=== PATIENT | female | born 1930 | race Caucasian/White ===

== ENCOUNTER 2021-09-21 14:04 | Inpatient (IN) | payer MEDICARE, BC ==
[~2021-09-21] VITALS: Ht 152.4 cm; Wt 48.9 kg
[2021-09-21] VITALS (118 sets, daily range): BP systolic 126–150; BP diastolic 79–86; PULSE 82; TEMP 96.4; O2SAT 90–100
[2021-09-21 14:53] LABS: BASO # 0.1 K/mm3 (0.0-0.2); EOS # 0.3 K/mm3 (0.0-0.7); EOS % 3.5 % (0-4.0); GRAN # 3.7 K/mm3 (1.4-6.5); GRAN % 52.5 % (42.2-75.2); HEMATOCRIT 37.3 % (37.0-47.0); HEMOGLOBIN 12.4 g/dl (12.5-16.0); LYMPH # 2.1 K/mm3 (1.2-3.4); LYMPH % 29.9 % (20.0-51.0); MEAN CELL VOLUME 91 fl (80.0-100.0); MEAN CORPUSCULAR HEMOGLOBIN 30 pg (27.0-31.0); MEAN CORPUSCULAR HGB CONC 33 g/dl (33.0-37.0); MONO # 0.9 K/mm3 (0.1-0.6); MONO % 12.5 % (1.7-9.3); PLATELET COUNT 318 K/mm3 (130-400); RED BLOOD COUNT 4.12 M/mm3 (4.10-5.30); REDCELL DISTRIBUTION WIDTH-CV 12.6 % (11.5-14.5)
[2021-09-21 15:11] LABS: ALBUMIN 3.3 gm/dL (3.4-4.8); BILIRUBIN,TOTAL 0.7 mg/dL (0.2-1.2); CALCIUM 9.3 mg/dL (8.4-10.2); CREATININE, serum 0.8 mg/dL (0.57-1.11); POTASSIUM 3.6 mmol/L (3.5-4.5); TOTAL PROTEIN 6.6 gm/dL (6.2-8.1)
[2021-09-21] MEDS ORDERED: PEPCID AC20 MG PO (18:52)
[2021-09-21] MEDS ORDERED: TENORMIN 2525 MG/TAB PO (18:52)
[2021-09-21] MEDS ORDERED: AMITRIPTYLINE H10 M1 PO (18:52)
[2021-09-21] MEDS ORDERED: COZAAR100 MG PO (18:52)
[2021-09-21] MEDS ORDERED: FLONASEALLERGY NS (18:53)
[2021-09-21] MEDS ORDERED: LEXAPRO 10MG10 MG PO (20:07)
[2021-09-21] MEDS ORDERED: VITAMIND3 5000 PO (20:09)
--- NOTE | 2021-09-21 20:40 | NUR ---
Patient arrived to ICU 6 with daughter at bedside at 1999. Patient is alert and orientated x4. Patient left pupil is fixed and nonreactive. Patient reports she thinks it has been this way for quite some time. Patient daughter unaware. Patient has skin tear to right upper arm from recent fall that is open to air and scabbed. Patient IV to left forearm with cardene infusing. Written orders received from Dr. Proctor stating to hold amitriptyline and ASA and to resume hold medications and order PT. Orders placed. 2034 Kell TELLES called to update. No answer. 2044 Spoke with Kell TELLES. Cardene parameters SBP less than 140, hold if pulse less than 50. Hitesh orders reviewed. Made aware regarding left pupil-coming to see patient. Q4HR neuro checks.
[2021-09-21 21:42] LABS: COLLECTION METHOD CLEAN CATCH
[2021-09-21 21:59] LABS: PH 7 (5-8); SQUAMOUS EPITHELIAL 0-2 /hpf (0-10); URINE APPEARANCE Clear (CLEAR/HAZY); URINE BACTERIA None Seen (NONE SEEN); URINE BILIRUBIN Negative (NEGATIVE); URINE BLOOD Negative (NEGATIVE); URINE COLOR Colorless (YELLOW); URINE GLUCOSE Negative (NEGATIVE); URINE KETONE Negative (NEGATIVE); URINE LEUKOCYTE ESTERASE Negative (NEGATIVE); URINE NITRATE Negative (NEGATIVE); URINE PROTEIN(semi-quant) Negative (NEGATIVE); URINE RBC 0-2 /hpf (0-2); URINE UROBILINOGEN Negative (NEGATIVE)
[2021-09-22] VITALS (391 sets, daily range): BP systolic 84–136; BP diastolic 61–88; PULSE 71–78; TEMP 97.6–98.6; O2SAT 88–100
[2021-09-22 05:49] LABS: BASO # 0.1 K/mm3 (0.0-0.2); BASO % 0.9 % (0.0-2.0); EOS # 0.5 K/mm3 (0.0-0.7); EOS % 5.5 % (0-4.0); GRAN # 4.4 K/mm3 (1.4-6.5); GRAN % 49.1 % (42.2-75.2); HEMATOCRIT 37.6 % (37.0-47.0); HEMOGLOBIN 12.4 g/dl (12.5-16.0); LYMPH # 2.8 K/mm3 (1.2-3.4); LYMPH % 31.2 % (20.0-51.0); MEAN CELL VOLUME 91 fl (80.0-100.0); MEAN CORPUSCULAR HEMOGLOBIN 30 pg (27.0-31.0); MEAN CORPUSCULAR HGB CONC 33 g/dl (33.0-37.0); MEAN PLATELET VOLUME 9.3 fl (7.4-10.4); MONO # 1.2 K/mm3 (0.1-0.6); PLATELET COUNT 314 K/mm3 (130-400); RED BLOOD COUNT 4.13 M/mm3 (4.10-5.30); REDCELL DISTRIBUTION WIDTH-CV 12.6 % (11.5-14.5)
[2021-09-22 06:03] LABS: CALCIUM 9.1 mg/dL (8.4-10.2); CREATININE, serum 0.72 mg/dL (0.57-1.11); POTASSIUM 3.9 mmol/L (3.5-4.5)
--- NOTE | 2021-09-22 07:09 | NUR ---
Patient had uneventful night. Resting in bed this AM. Report given to ALANA Nelson
--- NOTE | 2021-09-22 08:00 | NUR ---
Patient assisted to chair for breakfast. She does well. BP WNL. Will continue to monitor
--- NOTE | 2021-09-22 10:25 | NUR ---
Interior Design Professor met with patiet to discuss discharge planning. Patient's daughter, Giulia (ph#[phone]) is at bedside. Patient lives in [place] with her daughter, Samantha (ph#[phone]) and reported she recently moved to [place] from [place] this May. Patient is working on getting set up with [facility], specifically Dr. Fernando. Patient obtains medications from [facility] with no difficulties and has a cane and walker at home. Patient reports she has had more difficulty with ADLS since her fall about 10 days ago. Patient's daughter also remarks that patient used to be very active, however has done a lot of sitting at home during the pandemic which has resulted in a loss of strength for patient. PT has evaluated patient and is recommending Home Health vs outpatient PT. TARA spoke with patient and daughter about HH services and they are interested. SW provided Medicare.gov list of HH agencies that serve [place] and will follow up on agency. Patient's daughter advised that patient has DPOA-HC and she will bring in a copy to put on patient's chart. Discharge Plan: Home with Home Health
--- NOTE | 2021-09-22 16:15 | NUR ---
Pt to CT at this time.
--- NOTE | 2021-09-22 18:00 | NUR ---
Dr. Proctor here to see patient
--- NOTE | 2021-09-22 19:28 | NUR ---
UP to restroom and returned to recliner. Assessment complete and charted. Denies needs. Call light in reach.
[2021-09-23] VITALS (373 sets, daily range): BP systolic 134–159; BP diastolic 78–94; PULSE 72–79; TEMP 97.4–98; O2SAT 87–100
--- NOTE | 2021-09-23 06:00 | NUR ---
Patient given x1 dose of hydralazine during night. Otherwise uneventful. Resting in bed this AM. Call light in reach.
--- NOTE | 2021-09-23 07:00 | NUR ---
Pt resting in bed. VSS. Will continue to monitor.
--- NOTE | 2021-09-23 07:09 | NUR ---
Report given to Carlee WARNER
[2021-09-23] MEDS ORDERED: MELATONIN5 M1 SL (11:48)
[2021-09-23] MEDS ORDERED: APRESOLINE 10MG10 MG PO (11:50)
--- NOTE | 2021-09-23 13:48 | NUR ---
Coding Compliance Manager attended clinical rounds and patient will discharge home today. TARA met with patient and her daughter, Giulia to follow up on Home Health choice. Patient would like to get set up with [facility]. TARA contacted Yolanda at [facility] and faxed referral/orders. No additional needs at this time. Discharge Plan: Home with [facility]
== END 2021-09-23 15:40 | disposition home or self-care (01) | DRG 305 ==
LOC: COL.ER 14:04 → ICU 18:19
PROVIDERS: Family Medicine; Student in an Organized Health Care Education/Training Program; ADMIT Internal Medicine
DX: I16.1 Hypertensive emergency (principal); E87.1 Hypo-osmolality and hyponatremia; I68.0 Cerebral amyloid angiopathy; S06.2X0A Diffuse traumatic brain injury without loss of consciousness, initial encounter; I10 Essential (primary) hypertension; D64.9 Anemia, unspecified; E87.6 Hypokalemia; F32.A Depression, unspecified; K21.9 Gastro-esophageal reflux disease without esophagitis; W18.30XA Fall on same level, unspecified, initial encounter; Y92.002 Bathroom of unspecified non-institutional (private) residence as the place of occurrence of the external cause; Z85.42 Personal history of malignant neoplasm of other parts of uterus; Z88.2 Allergy status to sulfonamides
CPT/HCPCS: 99223-AI; 99233-AI; 99239; J0360; J7030; J7050

== ENCOUNTER 2022-09-07 19:17 | Observation (INO) | payer MEDICARE, BC ==
[~2022-09-07] VITALS: Ht 152.4 cm; Wt 58.1 kg
[~2022-09-07 19:17] MED LIST: AMITRIPTYLINE H10 M1 PO; APRESOLINE 10MG10 MG PO; COZAAR100 MG PO; FLONASEALLERGY NS; LEXAPRO 10MG10 MG PO; MELATONIN5 M1 SL; PEPCID AC20 MG PO; TENORMIN 2525 MG/TAB PO; VITAMIND3 5000 PO
[2022-09-07 19:36] LABS: BASO # 0.1 K/mm3 (0.0-0.2); BASO % 0.7 % (0.0-2.0); EOS # 0.5 K/mm3 (0.0-0.7); EOS % 3.9 % (0.0-4.0); GRAN # 6.3 K/mm3 (1.4-6.5); HEMOGLOBIN 13.4 g/dl (12.5-16.0); LYMPH # 3.9 K/mm3 (1.2-3.4); LYMPH % 31.7 % (20.0-51.0); MEAN CELL VOLUME 88 fl (80.0-100.0); MEAN CORPUSCULAR HEMOGLOBIN 30 pg (27-31); MEAN CORPUSCULAR HGB CONC 34 g/dl (33.0-37.0); MEAN PLATELET VOLUME 9.5 fl (7.4-10.4); MONO # 1.5 K/mm3 (0.1-0.6); MONO % 12.1 % (1.7-9.3); PLATELET COUNT 341 K/mm3 (130-400); RED BLOOD COUNT 4.44 M/mm3 (4.10-5.30); REDCELL DISTRIBUTION WIDTH-CV 13.1 % (11.5-14.5)
[2022-09-07 19:49] LABS: COLLECTION METHOD CATHETER
[2022-09-07 19:56] LABS: ALANINE AMINOTRANSFERASE 10 U/L (0-55); ALBUMIN 3.5 gm/dL (3.4-4.8); ALKALINE PHOSPHATASE 63 U/L (40-150); ANION GAP 9 mmol/L (7-16); AST,SGOT 13 U/L (5-34); BILIRUBIN,TOTAL 0.4 mg/dL (0.2-1.2); BLOOD UREA NITROGEN 16 mg/dL (10-20); CALCIUM 9.3 mg/dL (8.4-10.2); CARBON DIOXIDE 25 mmol/L (23-31); CHLORIDE 105 mmol/L (98-107); CREATININE, serum 1.07 mg/dL (0.57-1.11); GLUCOSE 102 mg/dL (70-99); POTASSIUM 3.6 mmol/L (3.5-4.5); SODIUM 139 mmol/L (136-145); TOTAL PROTEIN 7.2 gm/dL (6.2-8.1)
[2022-09-07 19:58] LABS: ALCOHOL(ethanol),MEDICAL < 10 mg/dL (0-10)
[2022-09-07 20:03] LABS: TROPONIN-I < 0.010 ng/mL (0.00-0.033)
[2022-09-07 20:08] LABS: PH 5.5 (5.0-8.5); URINE APPEARANCE Clear (CLEAR/HAZY); URINE BLOOD TRACE-INTACT (NEGATIVE); URINE COLOR Yellow (YELLOW); URINE GLUCOSE Negative (NEGATIVE); URINE KETONE Negative (NEGATIVE); URINE NITRATE Negative (NEGATIVE); URINE PROTEIN(semi-quant) Negative (NEGATIVE); URINE UROBILINOGEN 0.2 E.U/dL (0.2-1.0)
[2022-09-07 20:09] LABS: MUCOUS Present (NOT PRESENT); SQUAMOUS EPITHELIAL None Seen /hpf (0-10); URINE BACTERIA None Seen /hpf (NONE SEEN); URINE RBC 0-2 /hpf (0-2)
[2022-09-07] MEDS ORDERED: SYNTHROID 0.0.025 MG PO (23:12)
[2022-09-07] MEDS ORDERED: PEPCID 20MG TAB20 MG PO (23:12)
[2022-09-08] VITALS (7 sets, daily range): BP systolic 105–164; BP diastolic 64–94; PULSE 67–92; TEMP 97.5–98.6
[2022-09-08 02:01] LABS: PHOSPHOROUS 3.4 mg/dL (2.3-4.7)
[2022-09-08 02:23] LABS: TSH w REFLEX 5.149 uIU/mL (0.350-4.940)
[2022-09-08 07:00] LABS: BASO # 0.1 K/mm3 (0.0-0.2); BASO % 0.7 % (0.0-2.0); EOS # 0.5 K/mm3 (0.0-0.7); EOS % 5.2 % (0.0-4.0); GRAN # 4.8 K/mm3 (1.4-6.5); HEMOGLOBIN 12.2 g/dl (12.5-16.0); LYMPH # 2.8 K/mm3 (1.2-3.4); LYMPH % 29.6 % (20.0-51.0); MEAN CELL VOLUME 90 fl (80.0-100.0); MEAN CORPUSCULAR HEMOGLOBIN 30 pg (27-31); MEAN CORPUSCULAR HGB CONC 33 g/dl (33.0-37.0); MEAN PLATELET VOLUME 9.7 fl (7.4-10.4); MONO # 1.2 K/mm3 (0.1-0.6); MONO % 13.1 % (1.7-9.3); PLATELET COUNT 311 K/mm3 (130-400); REDCELL DISTRIBUTION WIDTH-CV 13.1 % (11.5-14.5)
[2022-09-08 07:05] LABS: HEMATOCRIT 36.9 % (37.0-47.0)
[2022-09-08 07:14] LABS: CALCIUM 8.9 mg/dL (8.4-10.2); CREATININE, serum 1.01 mg/dL (0.57-1.11); POTASSIUM 3.9 mmol/L (3.5-4.5)
--- NOTE | 2022-09-08 09:35 | NUR ---
TARA contacted the patient's daughter, Giulia (ph#[phone]), to discuss discharge plan. The patient lives in [place] with her other daughter, Ramona (ph#[phone]). Giulia lives five minutes away from them. She reports that the patient needs some help/supervision with showering and has a walker. She states that they have aide from [facility] come in to assist with the showering. The patient's PCP is Dr. Andreas Fernando and she receives her medications. The patient does not have a DPOA-HC in EMR, but Giulia states that the patient does have one completed and that it designates her and Ramona. She states that she will bring a copy to the hospital. Giulia states that the plan would be for the patient to return back home with her sister. TARA discussed home health services for PT/OT/nursing at home. Giulia declined home health at this time. She states that they have already made arrangements for the patient at home and they will not leave the patient by herself. She states that the patient works with a weight trainer. Giulia states that they would like to figure out why and are concerned how the patient will be independent, but will then have episodes like last night, where she cannot get out of her chair or stand up. *Discharge plan: home with family support*
--- NOTE | 2022-09-08 12:59 | NUR ---
Initial visit; Patient thanked Special Assemblies Supervisor for looking in on her and seemed pleased to have Special Assemblies Supervisor offer prayer. Patient's daughter was also present and seemed pleased also. Special Assemblies Supervisor prayed for healing and offered God's blessings and wished Germaine well.
--- NOTE | 2022-09-08 18:00 | NUR ---
Shift assessment preformed. Scheduled medications given. Patient Alert, but only paritially oriented. Left pupil noted to be larger than right and sluggish. Patient noted to have cataract surgery on this eye. Provider aware. VSS. Patient denies any pain, discomfort, SOA, or further needs at this time. Call light in reach. Fall precautions in place.
--- NOTE | 2022-09-08 22:01 | NUR ---
PATIENT IS SITTING UPRIGHT AT 90 DEGREE ANGLE IN BED EATING DINNER AT THIS TIME. PATIENT REPORTS TO THIS NURSE SHE HAS ALWAYS BEEN A GOOD EATER. PATIENT DENIES PAIN, NEEDS OR CONCERNS AT THIS TIME. PATIENT ENCOURAGED TO USE CALL LIGHT IN HAND WITH ANY NEEDS OR CONCERNS. PATIENT STATES UNDERSTANDING.
[2022-09-09 04:01] VITALS: BP 135/77; PULSE 72; TEMP 98.7
[2022-09-09 08:00] VITALS: BP 129/75; PULSE 76; TEMP 98.4
[2022-09-09 12:00] VITALS: BP 116/69; PULSE 72; TEMP 98.3
[2022-09-09] MEDS ORDERED: CEPHALEXIN500 M1 PO (13:03)
== END 2022-09-09 17:53 | disposition home or self-care (01) ==
LOC: COL.ER 19:17 → MEDICAL 22:53
PROVIDERS: Emergency Medicine; Nurse Practitioner Family; ADMIT Internal Medicine
DX: R53.1 Weakness (principal); I10 Essential (primary) hypertension; K21.9 Gastro-esophageal reflux disease without esophagitis; E03.9 Hypothyroidism, unspecified; F32.A Depression, unspecified; Z79.899 Other long term (current) drug therapy
CPT/HCPCS: G0378; J1650; J7030; Q9967